=== PATIENT | male | born 1965 | race Two or more races ===

== ENCOUNTER 2019-07-08 11:26 | Emergency (ER) | payer OTHER ==
[~2019-07-08] VITALS: Ht 170.2 cm; Wt 72.6 kg
[2019-07-08] MEDS ORDERED: VASOTEC20 MG (11:32)
[2019-07-08] MEDS ORDERED: NAPROXEN500 MG PO (15:54)
== END 2019-07-08 16:20 | disposition home or self-care (01) ==
LOC: ER 11:26 → CPU-OBS 11:57 → ER 11:57
DX: R07.89 Other chest pain (principal)
CPT/HCPCS: G0378; G0379; 93005

== ENCOUNTER 2020-07-29 09:26 | Emergency (ER) | payer OTHER ==
[~2020-07-29] VITALS: Ht 170.2 cm; Wt 81.6 kg
[~2020-07-29 09:26] MED LIST: NAPROXEN500 MG PO; VASOTEC20 MG
[2020-07-29] MEDS ORDERED: CARAFATE1 GM PO (17:55)
[2020-07-29] MEDS ORDERED: PEPCID AC20 MG PO (17:55)
== END 2020-07-29 18:13 | disposition home or self-care (01) ==
LOC: ER 09:26
DX: K29.70 Gastritis, unspecified, without bleeding (principal); R10.13 Epigastric pain; Z03.818 Encounter for observation for suspected exposure to other biological agents ruled out

== ENCOUNTER 2021-07-20 13:22 | Emergency (ER) | payer OTHER ==
[~2021-07-20] VITALS: Ht 170.2 cm; Wt 81.6 kg
[~2021-07-20 13:22] MED LIST changes: +CARAFATE1 GM PO; +PEPCID AC20 MG PO
== END 2021-07-20 17:31 | disposition designated cancer center or children's hospital (05) ==
LOC: ER 13:22
DX: S41.112A Laceration without foreign body of left upper arm, initial encounter (principal); W31.2XXA Contact with powered woodworking and forming machines, initial encounter; Y99.0 Civilian activity done for income or pay; I10 Essential (primary) hypertension; Z03.818 Encounter for observation for suspected exposure to other biological agents ruled out

== ENCOUNTER 2022-01-08 15:45 | Emergency (ER) | payer OTHER ==
[~2022-01-08] VITALS: Ht 170.2 cm; Wt 90.3 kg
[2022-01-08] MEDS ORDERED: NABUMETONE750 MG PO (18:19)
== END 2022-01-08 18:22 | disposition home or self-care (01) ==
LOC: ER 15:45
DX: S20.219A Contusion of unspecified front wall of thorax, initial encounter (principal); W18.30XA Fall on same level, unspecified, initial encounter; Y93.9 Activity, unspecified; Y92.018 Other place in single-family (private) house as the place of occurrence of the external cause; Y99.9 Unspecified external cause status; I10 Essential (primary) hypertension